=== PATIENT | male | born 1965 | race Caucasian/White ===

== ENCOUNTER 2021-12-20 15:35 | Inpatient (IN) | payer BC ==
[~2021-12-20] VITALS: Ht 175.3 cm; Wt 77.6 kg
[2021-12-20] MEDS ORDERED: NORVASC 5MG5 MG/TAB PO (15:54)
[2021-12-20] MEDS ORDERED: LIPITOR 40MG TA40 MG PO (15:55)
[2021-12-20] MEDS ORDERED: HCTZ 25MG TAB25 MG PO (15:55)
[2021-12-20] MEDS ORDERED: COZAAR100 MG PO (15:56)
[2021-12-20 16:00] VITALS: BP 150/85; PULSE 91; TEMP 98.7
[2021-12-20 18:05] LABS: BASO # 0.1 K/mm3 (0.0-0.2); BASO % 0.3 % (0.0-2.0); GRAN # 15.1 K/mm3 (1.4-6.5); GRAN % 87.5 % (42.2-75.2); HEMATOCRIT 43.8 % (42.0-52.0); HEMOGLOBIN 14.9 g/dl (13.5-18.0); LYMPH % 5.9 % (20.0-51.0); MEAN CELL VOLUME 90 fl (80.0-100.0); MEAN CORPUSCULAR HEMOGLOBIN 31 pg (27-31); MEAN CORPUSCULAR HGB CONC 34 g/dl (33.0-37.0); MEAN PLATELET VOLUME 9.8 fl (7.4-10.4); MONO % 5.7 % (1.7-9.3); PLATELET COUNT 203 K/mm3 (130-400); RED BLOOD COUNT 4.86 M/mm3 (4.20-5.60)
[2021-12-20 18:05] LABS: PH 5.5 (5.0-8.5); URINE APPEARANCE Clear (CLEAR/HAZY); URINE BLOOD Negative (NEGATIVE); URINE COLOR Straw (YELLOW); URINE GLUCOSE Negative (NEGATIVE); URINE KETONE 2+ (NEGATIVE); URINE NITRATE Negative (NEGATIVE); URINE PROTEIN(semi-quant) Negative (NEGATIVE); URINE UROBILINOGEN 0.2 E.U/dL (0.2-1.0)
[2021-12-20 18:11] LABS: SQUAMOUS EPITHELIAL None Seen /hpf (0-10); URINE BACTERIA None Seen /hpf (NONE SEEN); URINE RBC None Seen /hpf (0-2); URINE WBC 0-2 /hpf (0-2)
[2021-12-20 18:25] LABS: ALBUMIN 4.3 gm/dL (3.5-5.0); CALCIUM 9.3 mg/dL (8.4-10.2); CREATININE, serum 1.43 mg/dL (0.72-1.25); POTASSIUM 4.5 mmol/L (3.5-4.5); TOTAL PROTEIN 7.6 gm/dL (6.2-8.1)
[2021-12-20 18:40] LABS: COLLECTION METHOD CLEAN CATCH
--- NOTE | 2021-12-20 19:17 | NUR ---
SHIFT REPORT FROM MAURIZIO SHAIKH. PATIENT IN BED, ALERT AND ORIENTED BUT DROWSY. AT BEDSIDE. PATIENT HEADING DOWN FOR CT AT THIS TIME.
[2021-12-20 19:39] VITALS: BP 135/79; PULSE 86; TEMP 97.6
[2021-12-21] VITALS (11 sets, daily range): BP systolic 108–121; BP diastolic 67–83; PULSE 67–105; TEMP 98–99.5
[2021-12-21 05:55] LABS: BASO % 0.2 % (0.0-2.0); EOS % 0.2 % (0.0-4.0); GRAN # 9.4 K/mm3 (1.4-6.5); HEMATOCRIT 42.8 % (42.0-52.0); HEMOGLOBIN 14.5 g/dl (13.5-18.0); LYMPH # 1.5 K/mm3 (1.2-3.4); LYMPH % 12.1 % (20.0-51.0); MEAN CELL VOLUME 91 fl (80.0-100.0); MEAN CORPUSCULAR HEMOGLOBIN 31 pg (27-31); MEAN CORPUSCULAR HGB CONC 34 g/dl (33.0-37.0); MEAN PLATELET VOLUME 9.2 fl (7.4-10.4); MONO # 1.1 K/mm3 (0.1-0.6); MONO % 9.1 % (1.7-9.3); PLATELET COUNT 178 K/mm3 (130-400); RED BLOOD COUNT 4.69 M/mm3 (4.20-5.60); REDCELL DISTRIBUTION WIDTH-CV 12.2 % (11.5-14.5)
[2021-12-21 06:15] LABS: INR 1.2 (0.8-3.0); PROTHROMBIN TIME 13.9 SECONDS (9.7-12.8)
[2021-12-21 06:22] LABS: CALCIUM 8.9 mg/dL (8.4-10.2); CREATININE, serum 1.35 mg/dL (0.72-1.25); POTASSIUM 3.9 mmol/L (3.5-4.5)
[2021-12-21 06:36] LABS: MUCOUS Present (NOT PRESENT); SQUAMOUS EPITHELIAL 0-2 /hpf (0-10); URINE BACTERIA None Seen /hpf (NONE SEEN); URINE RBC 0-2 /hpf (0-2)
[2021-12-21 06:42] LABS: COLLECTION METHOD CLEAN CATCH; URINE APPEARANCE Clear (CLEAR/HAZY); URINE COLOR Yellow (YELLOW); URINE GLUCOSE Negative (NEGATIVE); URINE PROTEIN(semi-quant) Negative (NEGATIVE)
[2021-12-21 06:43] LABS: URINE BLOOD TRACE-INTACT (NEGATIVE); URINE KETONE 2+ (NEGATIVE); URINE NITRATE Negative (NEGATIVE); URINE UROBILINOGEN 0.2 E.U/dL (0.2-1.0)
--- NOTE | 2021-12-21 07:51 | NUR ---
PT TO SURGERY PER BED WITH RENZO SHAIKH PACU.
--- NOTE | 2021-12-21 09:45 | NUR ---
PT IN SURGERY AT THIS TIME.
--- NOTE | 2021-12-21 12:42 | NUR ---
PT TO ROOM 347 PER BED WITH REPORT FROM RENZO SHAIKH PACU @1200. VSS, PT IS A/O X4, ASSESSMENTS COMPLETE. LUNGS CTA, BOWEL SOUNDS PRESENT, AQUACEL DRESSING TO LEFT HIP CDI. TEDS AND SCDS PLACED BILATERALLY. PEDAL PULSES PALPABLE. IV TO PUMP PER ORDERS.
--- NOTE | 2021-12-21 15:05 | NUR ---
Instructional Materials Director met with patient for intake assessment/discharge planning: Numerous family members at bedside, but patient is agreeable to meet and all family exits the room happily, except spouse Winnie , and adult daughter with patient consent. Patient lives in a ranch home with his spouse two miles outside of [place]. The bath and bedroom are on the same floor, and there are two steps from the garage into the home. Patient does not use any DME, including oxygen. 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 He sees Dr. Servando Dos Santos for primary care and obtains his medications without difficulties at [facility] in [place]. Patient is independent in his ADLs, and he and his spouse share tasking for IADLs. Neither have any concern about patient ability to return to home, and they are open to PT/OT recommendations for in-home services, as indicated. Patient does express interest in completing a DPOA-HC, and he, his spouse and his adult daughter all accept paperwork to complete; education on DPOA-HC is offered. Patient and family express gratitude and report no further needs at this time. *Discharge plan: to home pending PT/OT eval recommendations*
--- NOTE | 2021-12-22 02:14 | NUR ---
PATIENT IN BED ON ROOM ENTRY. ALERT AND ORIENTED. HS MEDS PER EMAR. DENIES PAIN CONTROL NEEDS AT THIS TIME. L HEEL IN HEEL BOOT AT THIS TIME PER SOME DISCOMFORT ON HEEL. AQUACELL TO L HIP CDI.
[2021-12-22 03:45] VITALS: BP 119/72; PULSE 69; TEMP 97.9
[2021-12-22 06:33] LABS: HEMATOCRIT 36.8 % (42.0-52.0)
[2021-12-22 06:36] LABS: HEMOGLOBIN 12.2 g/dl (13.5-18.0)
[2021-12-22 07:16] VITALS: BP 103/76; PULSE 70; TEMP 98.4
--- NOTE | 2021-12-22 08:00 | NUR ---
PATIENT IS A&O. VSS. DENIES PAIN. LEFT HIP DRESSING IS CD&I. PATIENT SITTING UP IN BEDSIDE CHAIR WITH BREAKFAST TRAY. NO C/O N/V. SUFFICIENT INTAKE & OUTPUT. AM MEDS GIVEN. HEAD TO ASSESSMENT COMPLETE. SCD'S CURRENTLY OFF. POSITIVE PEDAL PULSES. PT/OT CONSULTED. PATIENT LIVES AT HOME WITH AND PLANS TO DISCHARGE BACK TO HOME WITHOUT PATIENT PT. NO OTHER NEEDS AT THIS TIME. CALL LIGHT IN REACH.
--- NOTE | 2021-12-22 10:17 | NUR ---
Initial visit; Patient and his thanked Freight Checker for looking in on Dereck and for offering God's blessings. Freight Checker wished them well.
--- NOTE | 2021-12-22 11:00 | NUR ---
PATIENT AMBULATING OUT IN HALLWAYS WITH PT. GAIT STEADY. SEE PT NOTES.
[2021-12-22 13:00] VITALS: BP 107/65; PULSE 83; TEMP 98.4
[2021-12-22 15:32] VITALS: BP 103/67; PULSE 80; TEMP 98.6
[2021-12-22 19:52] VITALS: BP 108/73; PULSE 80; TEMP 98.5
--- NOTE | 2021-12-22 20:21 | NUR ---
PT A&OX4 RESTING IN BED. ASSESSMENT COMPLETE AND MEDS GIVEN. PT DENIES PN. LT HIP INCISION CDI. INT TO LF. SCDS ON BLE. NO NEEDS AT THIS TIME. CALL LIGHT WTIHIN REACH.
[2021-12-22 23:41] VITALS: BP 106/72; PULSE 75; TEMP 98.7
[2021-12-23 03:37] VITALS: BP 109/69; PULSE 78; TEMP 99.1
[2021-12-23 06:08] LABS: HEMOGLOBIN 10.9 g/dl (13.5-18.0)
[2021-12-23 06:14] LABS: HEMATOCRIT 32.6 % (42.0-52.0)
[2021-12-23] MEDS ORDERED: ASPI325T6 PO (08:31)
[2021-12-23] MEDS ORDERED: TYLENOL 500MG500 MG PO (08:32)
[2021-12-23] MEDS ORDERED: PROTONIX 40MG T40 MG PO (08:32)
[2021-12-23] MEDS ORDERED: NAPROSYN500 MG PO (08:32)
[2021-12-23] MEDS ORDERED: NORCO 325 MG-51 TAB PO (08:35)
[2021-12-23] MEDS ORDERED: FERROUS SU325 MG/TAB PO (08:36)
--- NOTE | 2021-12-23 11:35 | NUR ---
PATIENT STABLE WITH , DISCHARGE INSTRUCTIONS GIVEN, FOLLOW UP APPOINTMENTS GIVEN, IV ON LFA REMOVED, QUESTIONS ANSWERED, ESCORTED WITH STAFF DOWN TO THEIR VEHICLE.
--- NOTE | 2021-12-23 13:43 | NUR ---
Cnc Machinist met with patient to review discharge plan as he is ready for discharge today. Patient plans to return home with his , Winnie who is at bedside. Patient has made arrangements to secure a walker and advised it will be at his home when he arrives. Tunnel Drier Operator scheduled outpatient PT at the [facility]. Discharge Plan: Home today
== END 2021-12-23 11:38 | disposition home or self-care (01) | DRG 522 ==
LOC: SURG 15:35
PROVIDERS: Internal Medicine; Nurse Practitioner Family; Orthopaedic Surgery; ADMIT Student in an Organized Health Care Education/Training Program
PROC: 0SRB03Z Replacement of Left Hip Joint with Ceramic Synthetic Substitute, Open Approach (ICD-10-PCS; principal; 2021-12-21 08:00)
DX: S72.042A Displaced fracture of base of neck of left femur, initial encounter for closed fracture (principal); I10 Essential (primary) hypertension; E78.5 Hyperlipidemia, unspecified; W18.39XA Other fall on same level, initial encounter; Y93.89 Activity, other specified; Y92.89 Other specified places as the place of occurrence of the external cause; Z72.89 Other problems related to lifestyle; Z88.0 Allergy status to penicillin
CPT/HCPCS: A4314; A9284; C1713; C1776; J0690; J1100; J2250; J2704; J3010